=== PATIENT | female | born 1975 | race Caucasian/White ===

== ENCOUNTER 2025-06-18 14:58 | Outpatient (CLI) | payer OTHER, SELFPAY ==
--- NOTE | ~2025-06-18 | XR_ITS ---
AP and lateral views of the sacrum/coccyx CLINICAL HISTORY: Sacroiliitis Findings: Hip joints and SI joints are intact. No degenerative change, sclerosis, erosive change seen . No fracture or dislocation. Soft tissues are unremarkable. IMPRESSION: Unremarkable exam. Reviewed, dictated and finalized at [facility]. IMPRESSION: Unremarkable exam.
--- OUTSIDE RECORDS SUMMARY | 2025-06-18 15:05 | XMS_ITS | Clinical Summary ---
Author Organization [facility] Address [address] [place] [address] Phone Care Team Providers Care Surveillance Investigator Name Role Phone Fredo Mills Primary Care Provider [phone] Allergies No known active allergies Medications ibuprofen (MOTRIN) 200 MG Tablet Take 800 mg by mouth every 8 hours as needed. Active EVENING PRIMROSE OIL PO Take by mouth 2 times daily. Active VITAMIN E PO Take by mouth 2 times daily. Active HYDROcodone-miguel taminophen (NORCO) 5-325 MG Tablet Take 1 Tab by mouth every 6 hours as needed for Moderate or more severe pain. 15 Tab 04/24/2019 Active Active Problems Problem Noted Date Diagnosed Date Carpal tunnel syndrome of right wrist 04/24/2019 Family History Medical History Relation Name Comments No Known Problems Father Hypertension Mother Relation Name Status Comments Father Alive Mother Alive Social History Tobacco Use Types Packs/Day Years Used Date Smoking Tobacco: Every Day Cigarettes Smokeless Tobacco: Never Alcohol Use Standard Drinks/Week Comments Yes 0 (1 standard drink = 0.6 oz pur e alcohol) occasional Comments No Sex and Gender Information Value Date Recorded Sex Assigned at Not on file Legal Sex Female 2:55 AM TURN OUT Gender Identity Not on file Sexual Orientation Not on file Last Filed Vital Signs Vital Sign Reading Time Taken Comments Blood Pressure 125/57 04/24/2019 3:35 PM CDT Pulse 67 04/24/2019 3:35 PM CDT Temperature 36 C (96.8 F) 04/24/2019 3:35 PM CDT Respiratory Rate 16 04/24/2019 3:35 PM CDT Oxygen Saturation 99% 04/24/2019 3:35 PM CDT Inhaled Oxygen Concentration - - Weight 66.7 kg (147 lb) 04/18/2019 9:00 AM CDT Height 157.5 cm (5' 2) 04/18/2019 9:00 AM CDT Body Mass Index 26.89 04/18/2019 9:00 AM CDT Plan of Treatment Health Maintenance Due Date Last Done Comments Hepatitis C Virus (HCV) Screening 1975 TdaP Immunization 1975 Hepatitis B Immunization (1 of 3 - 19+ 3-dose series) 1996 Pap Smear 1998 Cervical Cancer Screening (CCS) 2007 HPV/Cotest 2007 Cologuard 2022 Colonoscopy 2022 Colorectal Cancer Screening 2022 Immunochemical Fecal Occult Blood 2022 SARS-COV-2 Immunization ( season) 2024 08/11/2021, 07/20/2021 Influenza Immunization (#1) 2025 09/20/2018 Respiratory Syncytial Virus (RSV) Immunization (Adult) (1 - 1-dose 75+ series) 2052 Human Papillomavirus (HPV) Immunization Aged Out No longer eligible b ased on patient's age to complete this topic Meningococcal Immunization (ACWY) Aged Out No longer eligible b ased on patient's age to complete this topic Pneumococcal Immunization Combined Aged Out No longer eligible b ased on patient's age to complete this topic Rotavirus Immunization Aged Out No lo nger eligible based on patient's age to complete this topic Insurance [address] [place], [place] [id number] MEDICAID [facility] COVENTRY Care Teams Surveillance Investigator Relationship Specialty Start Date End Date Fredo Mills, PAC [address] [place] [id number] PCP - General Physician Academic Associate 08/29/17
--- OUTSIDE RECORDS SUMMARY | 2025-06-18 15:05 | XMS_ITS | Clinical Summary ---
Author Organization [facility] [address] Address [address] [place] [address] Phone Care Team Providers Care Senior Hris Analyst Name Role Phone Fredo Mills Primary Care Provider [phone] Corey Desir MD Unavailable [phone] Hina Paulino PT Unavailable Unavailable Mandeep Paulino PT Unavailable Unavailable Luis Liu MAGAZINE JOURNALIST Unavailable Un available Allergies No known active allergies Medications multivitamin capsule Take 1 capsule by mouth daily Active biotin-keratin 10,000-100 mcg-mg tablet Take by mouth daily Active etonogestreL (Nexplanon) 68 mg implant Nexplanon 68 MG Subcutaneous Implant QTY: 0 Days: 0 Refills: 0 Written: 10/14/20 Patient Instructions: 0 Active valACYclovir (VALTREX) 1 gram tablet daily [address] (NexIUM) 20 mg capsule Take 1 capsule (20 mg total) by mouth daily before breakfast Active ibuprofen (ADVIL,MOTRIN) 600 mg tablet Take by mouth every 6 (six) hours as needed 3 Active acetaminophen (TYLENOL) 500 mg tablet Take 1 tablet (500 mg total) by mouth every 6 (six) hours as needed for pain 30 tablet 3 Active naproxen (NAPROSYN) 500 mg tablet TAKE 1 TABLET BY MOUTH TWICE A DAY WITH FOOD 60 tablet 2 3 Active amoxicillin 500 mg tablet/capsule TAKE 4 CAPSULES BY MOUTH 1 HOUR BEFORE PROCEDURE 4 tablet/capsu le 2 4 Active Hospital, Clinic, or Other Facility Administered Medication Ordered Dose Route Frequency Start Date End Date Status lidocaine (XYLOCAINE) 20 mg/mL (2 %) injection 3 mLIndications:Admini stration of Local Anesthesia 3 mL One-Time Injection 06/06/2025 5 Ended methylPREDNISolone acetate (DEPO-medrol) injection 80 mgIndications:Primar y osteoarthritis of left knee 80 mg intra-artic One-Time Injection 06/06/2025 5 Ended Active Problems Problem Noted Date Diagnosed Date Sensorineural hearing loss (SNHL) of both ears 0 02/14/2024 Assessment & Plan (02/14/2024 12:13 PM CDT): Hearing test Low salt diet Check blood pressure during these events Agree MRI scan Inflammation in TMJ or neck could contribute these symptoms, consider physical therapy for neck Tinnitus, bilateral 02/14/2024 Assessment & Plan (02/14/2024 12:13 PM CDT): Hearing test Low salt diet Check blood pressure during these events Agree MRI scan Inflammation in TMJ or neck could contribute these symptoms, consider physical therapy for neck Aftercare following right knee joint replacement surgery 10/18/2022 Left-sided chest wall pain 10/10/2022 Polyarthropathy 05/19/2022 Tobacco use disorder 10/27/2021 Primary osteoarthritis of left knee 09/16/2021 Chronic constipation 07/19/2021 Left upper quadrant pain 07/19/2021 Overview (07/19/2021): Added automatically from request for surgery [id number] Calculus of gallbladder 06/20/2021 Assessment & Plan (06/20/2021 3:46 PM CDT): Small krish stone noted on ultrasound recently. I don't think this is contributing to the patient symptoms. Epigastric pain 06/10/2021 Overview (06/10/2021): Added automatically from request for surgery [id number] Assessment & Plan (06/20/2021 3:45 PM CDT): Chronic pain. No worrisome signs. Will schedule EGD. Continue Nexium. Follow up 6 weeks. Orthopedic aftercare 12/30/2020 Left carpal tunnel syndrome 12/07/2020 Overview (12/07/2020): Added automatically from request for surgery [id number] Carpal tunnel syndrome of left wrist 10/08/2020 Carpal tunnel syndrome of right wrist 04/24/2019 Acute streptococcal pharyngitis 04/10/2017 Overview (04/14/2017): Strep throat Other ill-defined and unknow n causes of morbidity and mortality 09/16/2016 Assessment & Plan (06/20/2021 3:48 PM CDT): Discussed weight loss diets. This can contribute to chronic upper abdominal pain. Patient tneed to address this issue aggresseively. Viral infection 10/12/2014 Overview (02/23/2017): Viral disease Pneumonia 10/12/2014 Overview (02/23/2017): Pneumonia Asthma 06/28/2013 Resolved Problems Problem Noted Date Diagnosed Date Resolved Date Primary osteoarthritis of right knee 11/04/2020 10/18/2022 Encounters Date Type Department Care Team Description 06/06/2025 8:30 AM CDT Office Visit [facility] Orth[facility] and [facility] Medicine [address] [facility] [address] [place] [address] Corey Desir MD Primary osteoarthritis of left knee (Primary Dx) 03/27/2025 2:18 PM CDT - 03/27/2025 11:59 PM CDT Hospital Encounter [facility] [address] [place] [address] Abnormal findings on diagnostic imaging of other specified body structures Discharge Disposition: Discharge to home or self care from Last 3 Months Surgical History Surgery Date Site/Laterality Comments SECTION 11/20/2001 - 11/19/2002 section OTHER SURGICAL HISTORY C-sections x2 KNEE SURGERY Right knee surgery OTHER SURGICAL HISTORY Exp. Lap for endometreosis SECTION FOOT SURGERY CARPAL TUNNEL RELEASE Bilateral COLONOSCOPY 09/29/2021 Medical History Medical History Date Comments Hx Other Medical 2004 knee; Lateralit y: right Hx Other Medical 2001 foot surgery pi n in toe; Laterality: right GERD (gastroesophageal reflux disease) Asthma Family History Medical History Relation Name Comments Arthritis Other 1 Family history of arthritis; Lung disease Other 1 Hypertension Other 2 Family history of Hypertension; Relation Name Status Comments Other 1 Other 2 Social History Tobacco Use Types Packs/Day Years Used Date Smoking Tobacco: Every Day Vaping Smokeless Tobacco: Never Tobacco Cessation:Ready to Q uit: Not Asked; Counseling Given: Not Answered Comments:Smoking History Packs/day: 10 Cigarettes Alcohol Use Standard Drinks/Week Comments Yes 0 (1 standard drink = 0.6 oz pur e alcohol) rarely AUDIT-C Answer Date Recorded Q1: How often do you have a drink containing alc ohol? 2-3 times a week 10/03/2022 Q2: How many drinks containi ng alcohol do you have on a typical day when you are drinking? 7 to 9 10/03/2022 Q3: How often do you have si x or more drinks on one occasion? Weekly 10/03/2022 Personal Safety Answer Date Recorded Have you ever been in or are you currently in a harmful physical or emotional relationship or is someone making you feel afraid or unsafe? Denies 06/27/2023 Comments No Sex and Gender Information Value Date Recorded Sex Assigned at Not on file Legal Sex Female 7:52 PM FEDERAL AID COORDINATOR Gender Identity Female 09/11/2024 6:48 PM CDT Sexual Orientation Straight 09/11/2024 6: 48 PM CDT Obstetrics History Last Filed Vital Signs Vital Sign Reading Time Taken Comments Blood Pressure 120/85 02/27/2025 3:01 PM CDT Pulse 96 02/27/2025 3:01 PM CDT Temperature 36.6 C (97.8 F) 02/14/2024 11:40 AM CDT Respiratory Rate 18 06/27/2023 8:00 PM CDT Oxygen Saturation 98% 02/14/2024 11:40 AM CDT Inhaled Oxygen Concentration - - Weight 103.4 kg (228 lb) 06/06/2025 8:19 AM CDT Height 153.7 cm (5' 0.5) 06/06/2025 8:19 AM CDT Body Mass Index 43.8 06/06/2025 8:19 AM CDT Plan of Treatment Health Maintenance Due Date Last Done Comments Breast Cancer Screening-Mammogram 1977 Cervical Cancer Screening 1977 Depression Screening 1977 Hepatitis C Screening 1977 Hepatitis B Screening 1995 Regular Well Visit/Exam 18-64 1995 Pneumococcal vaccine <65 (1 of 2 - PCV) 1996 Covid-19 Vaccine (3 - 2023-2 5 season) 2024 08/11/2021, 07/20/2021 Influenza Vaccine (#1) 2025 , 09/18/2021, 09/07/2020, Additional history exists Colon Cancer Screening-Colonoscopy 09/29/20312020 DTaP/Tdap/Td Vaccine (2 - Td or Tdap) 10/25/2033 10/25/2023 Medical Devices Implanted Type Area Care Management Specialist Device Identifier Shelf Expiration Date Model / Serial / Lot [employer] Cement Bone Simplex Gentamicin High Viscosity 40gm 6195-1-001 - [id number] Implanted:Qty: 2 on 10/03/2022 by Corey Desir MD at [facility] [employer] [id number] 02/18/2024 6195-1-001 / / [id number] [employer] Attune Cemented Posterior Stabilize Knee Right 4 Component [id number] - [id number] Implanted:Qty: 1 on 10/03/2022 by Corey Desir MD at [facility] Right: Knee [employer] [id number] 08/19/2032 [id number] / / [id number] [employer] Attune S+ Cement Fix Bearing Knee 3 Baseplate Tibial [id number] - [id number] Implanted:Qty: 1 on 10/03/2022 by Corey Desir MD at [facility] Right: Knee [employer] [id number] 08/19/2032 [id number] / / [id number] [employer] Attune 8mm Posterior Stabilize Fix Bearing Knee 4 Insert Tibial [id number] - [id number] Implanted:Qty: 1 on 10/03/2022 by Corey Desir MD at [facility] Right: Knee [employer] [id number] 07/20/2027 [id number] / / [id number] Procedures Procedure Name Priority Date/Time Associated Diagnosis Comments VT ARTHROCENTESIS ASPIR&/INJ MAJOR JT/BURSA W/O US Routine 06/06/2025 8:30 AM CDT Primary osteoarthritis of left knee MRI BRAIN WO CONTRAST Schedule Routine, Read Routine (OP Routine) 03/27/2025 3:03 PM CDT Abnormal findings on diagnostic imaging of other specified body structures COLONOSCOPY 09/29/2021 12:20 PM FEDERAL AID COORDINATOR from Last 3 Months or Most Recently Relevant to Health Maintenance Results * VT ARTHROCENTESIS ASPIR&/INJ MAJOR JT/BURSA W/O US (06/06/2025 8:30 AM CDT) Narrative Corey Desir MD - 06/06/2025 8:30 AM CDT Corey Desir MD 06/06/2025 11:46 AM Large Joint (Hip, Knee, Shoulder) Injection: L knee Performed by: Corey Desir MD Authorized by: Corey Desir MD Large Joint Injection/Aspiration: Consent Given by: Patient Site marked: the procedure site was marked Timeout: prior to procedure the correct patient, procedure, and site was verified Verbal consent obtained: Yes Supporting Documentation: Indications: Pain Procedure Details: Location: Knee Site: L knee Needle Size: 22 G Approach: Anterolateral Ultrasound guided: No Fluroscopic guidance: No Medications: 80 mg methylPREDNISolone acetate 80 mg/mL; 3 mL lidocaine 20 mg/mL (2 %) Patient tolerance: Patient tolerated the procedure well with no immediate complications us Corey Desir MD IN CLINIC/BEDSIDE ORDERA BLES Final Result * MRI Brain WO Contrast (03/27/2025 3:03 PM CDT) Anatomical Region Laterality Modality Head and Neck N/A Magnetic Resonan ce 03/27/2025 3:38 PM CDT Narrative 03/27/2025 3:41 PM CDT EXAM DESCRIPTION: MRI BRAIN WO CONTRAST REASON FOR STUDY: Chronic headaches and tingling sensation to top of head for 2 years. No provided focal neurologic deficits. No provided history of trauma or inciting and/or aggravating events. No provided past medical or surgical history. TECHNIQUE: Multiplanar imaging includes non-contrasted T1, T2, FLAIR, and diffusion with ADC map sequences. Additional sequence(s) sensitive to blood products. Images stored on PACS. COMPARISON: MRI brain without contrast 02/15/2024 FINDINGS: CEREBRUM: No acute intra-axial hemorrhage. No edema, mass effect, midline shift, or herniation. WHITE MATTER: Redemonstration of slight widely scattered periventricular-subcortical as well as slight patchy component of pontine T2/FLAIR hyperintense white matter disease, again nonspecific, though can be seen secondary to chronic microvascular ischemia, chronic headache disorders to include migraine headaches, demyelinating disease to include multiple sclerosis, and as sequelae of prior traumatic and/or inflammatory, to include infectious, insults. Correlate with clinical context. POSTERIOR FOSSA: No acute abnormality. As above. DIFFUSION IMAGING: No restricted diffusion to suggest acute/subacute ischemia or infarct. EXTRAAXIAL SPACES: No extra-axial fluid collection. No extra-axial mass. BRAIN VOLUME: Within normal limits for age. PITUITARY: Unchanged. VASCULATURE: No flow disturbance evident. CALVARIUM: Unremarkable. ORBITS: No acute abnormality. Ocular lenses and globes normal in conformation and position. PARANASAL SINUSES AND MASTOIDS: Well-aerated with no fluid levels. No mucosa thickening. OTHER: No other significant finding. IMPRESSION: No acute intracranial process with slight chronic findings as above. THIS IS AN ELECTRONICALLY VERIFIED FINAL REPORT 03/27/2025 3:41 PM - Electronically signed by Kenrick Baum M.D. ILIR: ILIR Report ID: [id number] Reading Location: [id number] Procedure Note Kenrick Baum MD - 03/27/2025 EXAM DESCRIPTION: MRI BRAIN WO CONTRAST REASON FOR STUDY: Chronic headaches and tingling sensation to top of headfor 2 years. No provided focal neurologic deficits. No provided history of trauma or inciting and/or aggravating events. No provided past medical or surgical history. TECHNIQUE: Multiplanar imaging includes non-contrasted T1, T2, FLAIR, and diffusion with ADC map sequences. Additional sequence(s) sensitive [employer] products. Images stored on PACS. COMPARISON: MRI brain without contrast 02/15/2024 FINDINGS: CEREBRUM: No acute intra-axial hemorrhage. No edema, mass effect,midline shift, or herniation. WHITE MATTER: Redemonstration of slight widely scattered periventricular-subcortical as well as slight patchy component of pontine T2/FLAIR hyperintense white matter disease, again nonspecific, though canbe seen secondary to chronic microvascular ischemia, chronic headachedisorders to include migraine headaches, demyelinating disease to include multiple sclerosis, and as sequelae of prior traumatic and/or inflammatory, toinclude infectious, insults. Correlate with clinical context. POSTERIOR FOSSA: No acute abnormality. As above. DIFFUSION IMAGING: No restricted diffusion to suggest acute/subacute ischemia or infarct. EXTRAAXIAL SPACES: No extra-axial fluid collection. No extra-axialmass. BRAIN VOLUME: Within normal limits for age. PITUITARY: Unchanged. VASCULATURE: No flow disturbance evident. CALVARIUM: Unremarkable. ORBITS: No acute abnormality. Ocular lenses and globes normal in conformation and position. PARANASAL SINUSES AND MASTOIDS: Well-aerated with no fluid levels. Nomucosa thickening. OTHER: No other significant finding. IMPRESSION: No acute intracranial process with slight chronic findings as above. THIS IS AN ELECTRONICALLY VERIFIED FINAL REPORT 03/27/2025 3:41 PM - Electronically signed by Kenrick Baum M.D. ILIR: ILIR Report ID: [id number] Reading Location: [id number] Fredo LAMAR IMG MRI PROCEDURES Final Resu lt * COLONOSCOPY (09/29/2021 12:20 PM FEDERAL AID COORDINATOR) Anatomical Region Laterality Modality Other Narrative Procedure Note Javier Wheeler MD - 09/29/2021 12:20 PM CST [facility] Patient Name: Shauna Jones Procedure Date: 09/29/2021 12:20PM Date of : 1975 Admit Type: Outpatient Age: 46 Gender: Female Attending MD: Javier Wheeler M.D. Room: [facility] ENDOSCOPY ROOM 1 Note Status: Finalized Patient Profile: This is a 46 year old female. Patient has chronicpain in the left lower quadrant area along with changein bowel habits and constipation. Upper endoscopy and imaging studies were normal. Procedure: Colonoscopy Indications: This is the patient's first colonoscopy, Abdominal pain in the left upper quadrant, Constipation Referring MD: WILLARD Clement Providers: Javier Wheeler M.D. Impression: - Melanosis coli. - The entire examined colon is normal. - Internal hemorrhoids. - No specimens collected. Recommendation: - Repeat colonoscopy in 10 years for screening purposes. - Continue present medications. - Low-fat low-calorie diet. Exercise regularly.Avoid smoking. Medicines: Monitored Anesthesia Care Complications: No immediate complications. Estimated Blood Loss: Estimated blood loss: none. Procedure: Pre-Anesthesia Assessment: - Prior to the procedure, a History and Physicalwas performed, and patient medications and allergieswere reviewed. The patient's tolerance of previous anesthesia was also reviewed. The risks andbenefits of the procedure and the sedation options and risks were discussed with the patient. All questions were answered, and informed consent was obtained. Prior Anticoagulants: The patient has taken no previous anticoagulant or antiplatelet agents. ASA Grade Assessment: II - A patient with mild systemicdisease. After reviewing the risks and benefits, the patient was deemed in satisfactory condition to undergo the procedure. The benefits, risks and alternatives of theprocedure and sedation were discussed and informed consentwas obtained. All questions were answered. Please referto the signed informed consent document in the medical record. The bowel preparation used was Miralax via split dose instruction. The bowel preparation usedwas bisacodyl tablets via split dose instruction. The scope was passed under direct vision. The Pediatric Colonoscope PCF-H190L [id number] was introducedthrough the anus and advanced to the the cecum, identifiedby appendiceal orifice and ileocecal valve. Thequality of the bowel preparation was good. Bowel prep was administered using a split dose. Findings: The perianal and digital rectal examinations were normal. The cecum appeared normal. The colon (entire examined portion) appeared normal. No polyps and no mass lesions noted. No inflammatory changes noted. Mild diffusechanges of melanosis coli noted Internal hemorrhoids were found during retroflexion. The hemorrhoids were small. Electronically signed by Javier Wheeler M.D. Javier Wheeler M.D. 09/29/2021 1:24:35 PM Number of Addenda: 0 Note Initiated On: 09/29/2021 12:20 PM Procedure Code(s): --- Professional --- 69442, Colonoscopy, flexible; diagnostic, including collection of specimen(s) by brushing or washing, when performed (separateprocedure) Diagnosis Code(s): --- Professional --- K64.8, Other hemorrhoids R10.12, Left upper quadrant pain K59.00, Constipation, unspecified CPT copyright 2019 [employer]. All rights reserved. The codes documented in this report are preliminary and upon mast maker reviewmay be revised to meet current compliance requirements. Recognized by the [employer] for promoting quality in endoscopy Javier Wheeler MD ENDOSCOPY PROCEDURES Final Result from Last 3 Months or Most Recently Relevant to Health Maintenance Insurance [facility] Advance Directives For more information, please contact: [phone] * Full Code (Latest Code Status on File) Date Activated Date Inactivated Comments 10/03/2022 11:35 AM 10/03/2022 7:14 PM * Full Code Date Activated Date Inactivated Comments 09/29/2021 11:46 AM 09/29/2021 6:14 PM * Full Code Date Activated Date Inactivated Comments 09/29/2021 11:46 AM 09/29/2021 11:46 AM * Full Code Date Activated Date Inactivated Comments 07/05/2021 11:36 AM 07/05/2021 5:57 PM Care Teams Senior Hris Analyst Relationship Specialty Start Date End Date Fredo Mills PA [address] [place] [address] PCP - General Family Practice 12/20/18 Corey Desir MD [address] [place] [address] Surgeon Orthopedic Surgery 12/16/20 Hina Paulino, PT Physical Therapist Physical Therapy 10/17/22 Mandeep Paulino, PT Physical Therapist Physical Therapy 10/21/22 Luis Liu, MAGAZINE JOURNALIST Senior Administrative Associate Physical Therapy 11/03/22
--- OUTSIDE RECORDS SUMMARY | 2025-06-18 15:05 | XMS_ITS | Clinical Summary ---
Author Organization [employer] Address [address] [place] [address] Care Team Providers Care Film Spooler Name Role Phone Unavailable Primary Care Provider Unavailabl e Source Comments This disclosure is being made pursuant to the [email or web address] program and maynot contain all information available regarding this patient.[employer] Social History Tobacco Use Types Packs/Day Years Used Date Smoking Tobacco: Never Assessed Comments Unknown Sex and Gender Information Value Date Recorded Sex Assigned at Not on file Legal Sex Female 4:57 PM CDT Gender Identity Not on file Sexual Orientation Not on file Plan of Treatment Health Maintenance Due Date Last Done Comments Breast Cancer Screening-Mammogram 1977 CT Colonography 1975 Colonoscopy 1975 Colorectal Cancer Screening 1975 Fecal DNA Test 1975 HPV 1975 Lab-Cholesterol Screening 1975 Lab-Hepatitis C Screening 1975 Sigmoidoscopy 1975 Annual Wellness Visit 1995 Hepatitis B Vaccine (1 of 3 - 19+ 3-dose series) 1996 Tetanus/Pertussis Vaccine Teen/Adult (1 - Tdap) 1996 FOBT/FIT 1997 Cervical Cancer Screening 04/09/2015 Pap Smear 04/08/2018 04/08/2015 COVID-19 Vaccine ( - 2023-2 5 season) 2024 Influenza Vaccine (#1) 2025 Zoster (Shingles) Vaccine 50 + (1 of 2) 2027 RSV Adult (1 - 1-dose 75+ series) 2052 HIB Vaccine Aged Out No longer eligi ble based on patient's age to complete this topic HPV Vaccine (9-26yo & Shared Decision 27-45yo) Aged Out No longer eligible b ased on patient's age to complete this topic Hepatitis A Vaccine Aged Out No longe r eligible based on patient's age to complete this topic IPV Vaccine Aged Out No longer eligi ble based on patient's age to complete this topic Meningococcal Conjugate Vaccine Aged Out No longer eligible based on patient's age to complete this topic Pneumococcal Vaccines 0-49 yo Aged Out No longer eligible based on patient's age to complete this topic RSV < 20 Months Aged Out No longer el igible based on patient's age to complete this topic Procedures Procedure Name Priority Date/Time Associated Diagnosis Comments LIQUID-BASED PAP SMEAR Routine 04/08/2015 12:00 AM CDT from Last 3 Months or Most Recently Relevant to Health Maintenance Results * Liquid Based Pap Smear (04/08/2015 12:00 AM CDT) 04/08/2015 04/09/2015 Narrative MEI [facility] PATH - 04/14/2015 3:00 PM CDT CASE: [id number] PATIENT: PATRICIA STOCKTON Patient: PATRICIA STOCKTON [place] [facility] [place] 39 Birthdate: 1975 Sex: F Submitted By: JOHN ANN Copies To: FERNANDEZ GARCIA Gynecological Cytology Date Collected: 04/08/2015 LMP:BIRTHCONTROL Specimen Source:Cervical; [id number] Date Received: 04/09/2015 Clinical Information:Last Normal Pap: More than 1 year ago; Last Abnormal Pap: Never Reason for Pap Smear:Screening Pap Smear SPECIMEN ADEQUACY: Satisfactory for evaluation; an endocervical /transformation zone component is present. INTERPRETATION: Negative for intraepithelial lesion or malignancy. Cervicovaginal cellular samples are subject to both false negative and false positive findings. This is well documented in the medical literature. The patient's cervicovaginal cellular sample result should be interpreted in the proper clinical context. Correlation with the patient's clinical history and physical findings is recommended. If there is a visible mucosal lesion, a biopsy is recommended regardless of the cytology results Final Diagnosis performed by Colleen Molina Electronically signed 04/14/2015 1:13:06PM Procedure Note Provider, Not In System - 04/14/2015 CASE: [id number] PATIENT: PATRICIA STOCKTON Patient: PATRICIA STOCKTON [place] Age[place] 39 Birthdate: 1975 Sex: F Submitted By: JOHN ANN Copies To: FERNANDEZ GARCIA Gynecological Cytology Date Collected: 04/08/2015 LMP:BIRTHCONTROL SpecimenSource:Cervical; [id number] Date Received: 04/09/2015 Clinical Information:Last Normal Pap: Morethan 1 year ago; Last Abnormal Pap: Never Reason for Pap Smear:Screening Pap Smear SPECIMEN ADEQUACY: Satisfactory for evaluation; an endocervical /transformation zonecomponent is present. INTERPRETATION: Negative for intraepithelial lesion or malignancy. Cervicovaginal cellular samples are subject to both false negative andfalse positive findings. This is well documented in the medical literature. The patient'scervicovaginal cellular sample result should be interpreted in the proper clinical context. Correlationwith the patient's clinical history and physical findings is recommended. If there is avisible mucosal lesion, a biopsy is recommended regardless of the cytology results Final Diagnosis performed by Colleen Molina Electronically signed 04/14/20151:13:06PM us Not In System Provider PATHOLOGY/CYTOLOGY ORDERA BLES Final Result [facility] [place] from Last 3 Months or Most Recently Relevant to Health Maintenance
--- OUTSIDE RECORDS SUMMARY | 2025-06-18 15:05 | XMS_ITS | Referral Summary ---
Author Organization [facility] [address] Address [address] [place] [address] Phone Care Team Providers Care Material Dispatcher Name Role Phone Fredo Mills Primary Care Provider Corey Desir MD Unavailable [phone] Hina Paulino PT Unavailable Unavailable Mandeep Paulino PT Unavailable Unavailable Luis Liu DIRECTOR OF PUBLIC WORKS Unavailable Un available Encounters Date Type Department Care Team Description 06/06/2025 8:30 AM CDT Office Visit [facility] [address] [place] [address] Corey Desir MD Primary osteoarthritis of left knee (Primary Dx) 03/27/2025 2:18 PM CDT - 03/27/2025 11:59 PM CDT Hospital Encounter [facility] [address] [place] [address] Abnormal findings on diagnostic imaging of other specified body structures Discharge Disposition: Discharge to home or self care from Last 3 Months Allergies No known active allergies Medications multivitamin [...] (07/19/2021): Added automatically from request for surgery [id number] Calculus of gallbladder 06/20/2021 Assessment & Plan (06/20/2021 3:46 PM CDT): Small krish stone noted on ultrasound recently. I don't think this is contributing to the patient symptoms. Epigastric pain 06/10/2021 Overview (06/10/2021): Added automatically from request for surgery [id number] Assessment & Plan (06/20/2021 3:45 PM CDT): Chronic pain. No worrisome signs. Will schedule EGD. Continue Nexium. Follow up 6 weeks. 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 Gender Identity Female 09/11/2024 6:48 PM CDT Sexual Orientation Straight 09/11/2024 6: 48 PM CDT Last Filed Vital Signs Vital Sign Reading [...] 06/06/2025 8:19 AM CDT Plan of Treatment Not on file Medical Devices Implanted Type Area Freight Receiver Device Identifier Shelf Expiration Date Model / Serial / Lot [employer] Cement Bone Simplex Gentamicin High Viscosity 40gm 6195-1-001 - [id number] Implanted:Qty: 2 on 10/03/2022 by Corey Desir MD at [facility] [place] [employer] [id number] 02/18/2024 6195-1-001 / / [id number] [employer] Attune Cemented Posterior Stabilize Knee Right 4 Component [id number] - [id number] Implanted:Qty: 1 on 10/03/2022 by Corey Desir MD at [facility] Right: Knee [employer] [id number] 08/19/2032 [id number] / / [id number] [employer] Attune S+ Cement Fix Bearing Knee 3 Baseplate Tibial [id number] - [id number] Implanted:Qty: 1 on 10/03/2022 by Corey Desir MD at [facility] Right: Knee [employer] [id number] 08/19/2032 [id number] / / [id number] [employer] Attune 8mm Posterior Stabilize Fix Bearing Knee 4 Insert Tibial [id number] - [id number] Implanted:Qty: 1 on 10/03/2022 by Corey Desir MD at [facility] Right: Knee [employer] [id number] 07/20/2027 [id number] / / [id number] Procedures Procedure Name Priority Date/Time Associated Diagnosis Comments OK ARTHROCENTESIS ASPIR&/INJ MAJOR JT/BURSA W/O US Routine 06/06/2025 8:30 AM CDT Primary osteoarthritis of left knee MRI BRAIN WO CONTRAST Schedule Routine, Read Routine (OP Routine) 03/27/2025 3:03 PM CDT Abnormal findings on diagnostic imaging of other specified body structures COLONOSCOPY 09/29/2021 12:20 PM PAINTER SUPERVISOR from Last 3 Months or Most Recently Relevant to Health Maintenance Results * OK ARTHROCENTESIS ASPIR&/INJ MAJOR JT/BURSA W/O US (06/06/2025 [...] Kenrick Baum M.D. ILIR: ILIR Report ID: [id number] Reading Location: [place] [address] Procedure Note Kenrick Baum MD - 03/27/2025 [...] with ADC map sequences. Additional sequence(s) sensitive [employer]. Images stored on PACS. COMPARISON: MRI brain [...] Kenrick Baum M.D. ILIR: ILIR Report ID: [id number] Reading Location: [id number] Fredo LAMAR IMG MRI PROCEDURES Final Resu lt * COLONOSCOPY (09/29/2021 12:20 PM PAINTER SUPERVISOR) Anatomical Region Laterality Modality Other Narrative Procedure Note Javier Wheeler MD - 09/29/2021 12:20 PM CST [place] Patient Name: Shauna Jones Procedure Date: 09/29/2021 12:20PM Date of : 1975 Admit Type: Outpatient Age: 46 Gender: Female Attending MD: Javier Wheeler M.D. [facility] Note Status: Finalized [...] under direct vision. The Pediatric Colonoscope PCF-[id number] was introducedthrough the anus and advanced to [...] 12:20 PM Procedure Code(s): --- Professional --- 46208, Colonoscopy, flexible; diagnostic, including collection of specimen(s) by brushing or washing, when performed (separateprocedure) Diagnosis Code(s): --- Professional --- K64.8, Other hemorrhoids R10.12, Left upper quadrant pain K59.00, Constipation, unspecified CPT copyright 2019 [employer]. All rights reserved. The codes documented in this report are preliminary and upon qa reviewer reviewmay be revised to meet current compliance requirements. Recognized by the [employer] for promoting quality in endoscopy Javier Wheeler MD ENDOSCOPY PROCEDURES Final Result from Last 3 Months or Most Recently Relevant to Health Maintenance Insurance [facility] Advance Directives For more information, please contact: [phone] * Full Code (Latest Code Status on File) Date Activated Date Inactivated Comments 10/03/2022 11:35 AM 10/03/2022 7:14 PM * Full Code Date Activated Date Inactivated Comments 09/29/2021 11:46 AM 09/29/2021 6:14 PM * Full Code Date Activated Date Inactivated Comments 09/29/2021 11:46 AM 09/29/2021 11:46 AM * Full Code Date Activated Date Inactivated Comments 07/05/2021 11:36 AM 07/05/2021 5:57 PM Care Teams Material Dispatcher Relationship Specialty Start Date End Date Fredo Mills PA [address] [place] [address] PCP - General Family Practice 12/20/18 Corey Desir MD [address] [place] [address] Surgeon Orthopedic Surgery 12/16/20 Hina Paulino, PT Physical Therapist Physical Therapy 10/17/22 Mandeep Paulino, PT Physical Therapist Physical Therapy 10/21/22 Luis Liu, DIRECTOR OF PUBLIC WORKS V Belt Coverer Physical Therapy 11/03/22
== END 2025-06-18 14:59 | disposition home or self-care (01) ==
LOC: ANHIMG 15:01
PROVIDERS: PCP Physician Assistant; Visit Provider Nurse Practitioner Adult Health
DX: M46.1 Sacroiliitis, not elsewhere classified (principal)
CPT/HCPCS: 72220

== ENCOUNTER 2025-08-04 09:37 | Day surgery (SDC) | payer OTHER, SELFPAY ==
--- NOTE | ~2025-08-04 | XR_ITS ---
XR fluoroscopy no charge Indication:Bilateral intra-articular SI joint steroid injection TECHNIQUE: Fluoroscopy used during Bilateral intra-articular SI joint steroid injection performed by [Brandon Dupree MD] on 08/04/2025. 52 seconds of fluoroscopy with 10 fluoroscopic images captured. FINDINGS: Correlate with procedure note. IMPRESSION: Fluoroscopy used during Bilateral intra-articular SI joint steroid injection. Reviewed, dictated and finalized at location O.
--- NOTE | 2025-08-04 10:01 | PM.HPGS ---
History of Present Illness History of Present Illness Consent: Risks, benefits, and alternatives have been discussed and questions answered. Patient agrees to proceed with procedure. Chief complaint: Sacroiliac joint arthropathy, sacroiliitis Narrative: Shauna Jones is a 49 year old female with chronic, recalcitrant and disabling bilateral lumbosacral back pain secondary to sacroiliac joint arthropathy, sacroiliitis with failure to respond to aggressive conservative measures including PT, oral and topical analgesics, opioid and nonopioid analgesics, rest, time and activity/behavioral modification over the past 1-2 years who presents for therapeutic intra-articular steroid injection of the bilateral SI joints under fluoroscopic guidance and with contrast control. Review of Systems Review of Systems: Patient denies any new infectious, allergic, cardiopulmonary, neurologic or constitutional symptoms or changes in activity tolerance or exercise capacity including new or progressive SOB/COOK, peripheral edema, productive cough, dysuria, nausea/vomiting, diarrhea, weight change, fevers/chills/night sweats, new or progressive neurologic deficit, cognitive or mood changes since last seen, except as documented in the HPI. All systems reviewed & are unremarkable except as noted in HPI and below PMFSH Past Medical History Medical History (Updated 08/04/25 @ 10:04 by Brandon Dupree MD) Dorsalgia Sacroiliitis delivery delivered GERD (gastroesophageal reflux disease) HTN (hypertension) Arthritis Surgical History Surgical History H/O foot surgery History of right knee joint replacement Family History Family History Father Hypertension Mother Hypertension Heart disease Cerebrovascular accident Asthma Sibling Hypertension Cancer Social History Social History Smoking status: Current every day smoker Tobacco type: cigarettes and e-cigarettes/vaping Additional smoking assessment comments: stopped cigarette use in 2019, now vapes Alcohol intake: current Drinks per week: 6 Substance use: current Substance use type: marijuana Other substance usage details: smoked as sleep aid Last use: 07-24-25 Living arrangements: with family Additional living arrangements comments: and two kids Spiritual care concerns: No Meds Home Medications and Allergies Home Medications ?Medication ?Instructions ?Recorded ?Confirmed ?Type esomeprazole magnesium 20 mg 20 mg PO DAILY 06/18/25 07/25/25 History capsule,delayed release (Nexium) losartan 50 mg tablet 50 mg PO DAILY 06/18/25 07/25/25 History cyclobenzaprine 10 mg tablet 10 mg PO PRN PRN pain 07/25/25 07/25/25 History multivitamin (Daily Multi-Vitamin 1 tablet PO DAILY 07/25/25 07/25/25 History tablet) Allergies Allergy/AdvReac Type Severity Reaction Status Date / Time No Known Allergies Allergy Verified 07/25/25 12:07 Exam Narrative: The patient's physical exam is essentially unchanged from prior examination on 06/18/2025. Specifically, patient demonstrates normal lung capacity, tidal volume and respiratory rate without wheezes, crackles, rales or rubs. Heart rate and rhythm are regular without murmurs, gallops or rubs. No JVD. Pulses 2+ globally without increasing peripheral edema. AAOx3 with no evidence of confusion, intoxication or altered mental state, NC/AT without acute distress or altered consciousness. Speech, cognition, mood, insight and judgment at baseline and within normal limits. Assessment and Plan Assessment and plan (1) Sacroiliitis: Code(s): M46.1 - Sacroiliitis, not elsewhere classified Status: Acute Assessment and Plan: Proceed as planned with therapeutic intra-articular steroid injection of the bilateral SI joints under fluoroscopic guidance and with contrast control. (2) Arthropathy of sacroiliac joint: Code(s): M47.818 - Spondylosis without myelopathy or radiculopathy, sacral and sacrococcygeal region Status: Acute (3) Chronic low back pain: Code(s): M54.50 - Low back pain, unspecified; G89.29 - Other chronic pain Status: Acute
--- NOTE | 2025-08-04 10:05 | W.PM.PROC2 ---
Procedure Note - Detailed Date of Procedure 08/04/25 Pre-op Diagnosis Sacroiliac joint arthropathy, sacroiliitis Post-op Diagnosis Same Procedure Performed Bilateral Sacroiliac Joint Steroid Injection under Fluoroscopic Guidance and with Contrast Control. Surgeon Brandon Dupree MD Supervisor Pullet Farm None Anesthesia Local Description of Procedure INFORMED CONSENT: Risks, benefits and alternatives to the procedure were discussed in detail with the patient who expressed explicit understanding and consent to proceed. Patient was informed verbally and in written form regarding the risks associated with the procedure including the low risk of serious infection, bleeding/bruising, allergic reaction, nerve or organ injury, paralysis, procedural site pain or discomfort, worsening pain and/or mobility, failure to treat and/or disfigurement. The patient expressed explicit understanding and consent to proceed. All materials required for the procedure were available prior to procedure start. Site and side were marked prior to procedure and confirmed in the presence of the patient. PROCEDURE IN DETAIL: The patient was brought to the procedural suite and placed in the prone position. Patient was made comfortable with use of pillows under the head/chest, hips and ankles. Skin overlying the injection site on the affected side(s) was prepared broadly with ChloraPrep applicator and draped in a sterile manner. Aseptic technique was used throughout. The right SI joint was identified in the AP view and contralateral oblique angulation with caudal tilt was utilized to optimize visualization of the inferior and medial joint line representing the posterior portion of the joint. Local anesthesia was established by infiltration with approximately 5 mL of 2% lidocaine via a 1-1/2 inch 27-gauge needle. A 22-gauge 3.5 inch Quincke spinal needle was advanced until the needle entered the inferior third of the joint space approximately 1cm cephalad from its most inferior point. In the AP view, 0.5 mL of Omnipaque 300 contrast medium was injected after negative aspiration for CSF, blood or other bodily fluid, showing appropriate intra-articular spread of contrast without evidence of intravascular, perineural or intrathecal placement. A 1.5 mL solution containing 5 mg of dexamethasone in 0.5% PF bupivacaine was injected after repeat negative aspiration. Appropriate spread of the injectate was confirmed with washout of previous injected contrast. No parasthesias were elicited. Needle was removed completely intact without difficulty. The same exact procedure was repeated for all remaining levels on the contralateral side, left SI joint, modified as necessary to accommodate for the new target location with identical findings/results and no evidence of complication. Images were saved and documented in the patient chart. Patient's skin was cleansed and sterile bandage applied. The patient tolerated the procedure well. The patient was transported to the recovery area in stable condition where they were observed for an appropriate amount of time prior to discharge, without evidence of complication. The patient was instructed to avoid excessive activity for the next 48 hours, including climbing and frequent use of stairs. Showers only for 48 hours. They were instructed not to drive or operate heavy machinery for 24 hours. They are to monitor for severe headaches, fevers, chills, night sweats, erythema/swelling at the site or any other signs of infection, bleeding/bruising, bowel or bladder changes as well as new pain, weakness or numbness in the upper or lower extremity. Should they notice these changes, they are instructed to call our office immediately or report directly to the nearest Emergency Department if no answer or if after posted office hours. COMPLICATIONS: None COMMENTS: None CONTRAST WASTED: 29mL Omnipaque 300. Complications No immediate complications Condition Stable Disposition Same day [facility] Billing Surgery - Charge Forward: Surgery Billing
[2025-08-04 10:10] VITALS: BP 135/73; PULSE 74; RESP 16; TEMP 36.7; O2SAT 98
[2025-08-04 10:19] VITALS: BP 142/77; PULSE 79; RESP 14; O2SAT 98
[2025-08-04] MEDS: LIDOCAINE 1% PF INJ 5 ML VIAL INFILTRATE (10:20)
[2025-08-04] MEDS: BUPivacaine HCL 0.5% 10 ML AMP INFILTRATE (10:21)
[2025-08-04] MEDS: dexAMETHasone SOD PHOS INJ 10 MG/ML 1 ML VIAL IM (10:22)
[2025-08-04 10:23] VITALS: BP 133/77; PULSE 78; RESP 14; O2SAT 98
[2025-08-04 10:28] VITALS: BP 131/77; PULSE 78; RESP 16; O2SAT 100
--- OUTSIDE RECORDS SUMMARY | 2025-08-04 10:29 | XMS_ITS | Clinical Summary ---
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
--- OUTSIDE RECORDS SUMMARY | 2025-08-04 10:29 | XMS_ITS | Clinical Summary ---
Author Organization [facility] [address] Address [address] [place] [address] Phone Care Team Providers Care Copying Machine Mechanic Name Role Phone Fredo Mills Primary Care Provider [phone] Corey Desir MD Unavailable [phone] Hina Paulino PT Unavailable Unavailable Mandeep Paulino PT Unavailable Unavailable Luis Liu MILL HAND Unavailable Un available Allergies No known active [...] PROCEDURE 4 tablet/capsu le 2 4 Active Active Problems Problem Noted Date Diagnosed [...] (07/19/2021): Added automatically from request for surgery [id number] Calculus of gallbladder 06/20/2021 Assessment & Plan (06/20/2021 3:46 PM CDT): Small krish stone noted on ultrasound recently. I don't think this is contributing to the patient symptoms. Epigastric pain 06/10/2021 Overview (06/10/2021): Added automatically from request for surgery [id number] Assessment & Plan (06/20/2021 3:45 PM CDT): Chronic pain. No worrisome signs. Will schedule EGD. Continue Nexium. Follow up 6 weeks. 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 Gender Identity Female 09/11/2024 6:48 PM CDT [...] - PCV) 1996 Covid-19 Vaccine (3 - 2024-2 6 season) 2025 08/11/2021, 07/20/2021 Influenza Vaccine (#1) 2025 2, 09/18/2021, 09/07/2020, Additional history exists Colon Cancer Screening-Colonoscopy 09/29/20312020 DTaP/Tdap/Td Vaccine (2 - Td or Tdap) 10/25/2033 10/25/2023 Medical Devices Implanted Type Area Mechanics Handyman Device Identifier Shelf Expiration Date Model / Serial / Lot [employer] Cement Bone Simplex Gentamicin High Viscosity 40gm 6195-1-001 - [id number] Implanted:Qty: 2 on 10/03/2022 by Corey Desir MD at [facility] [employer] [id number] 02/18/2024 6195-1-001 / / [id number] [employer] Attune Cemented Posterior Stabilize Knee Right 4 Component [id number] - [id number] Implanted:Qty: 1 on 10/03/2022 by Corey Desir MD at [facility] Right: Knee [employer] [id number] 08/19/2032 [id number] / / [id number] [employer] Attune S+ Cement Fix Bearing Knee 3 Baseplate Tibial [id number] - [id number] Implanted:Qty: 1 on 10/03/2022 by Corey Desir MD at [facility] Right: Knee [employer] [id number] 08/19/2032 [id number] / / [id number] [employer] Attune 8mm Posterior Stabilize Fix Bearing Knee 4 Insert Tibial [id number] - [id number] Implanted:Qty: 1 on 10/03/2022 by Corey Desir MD at [facility] Right: Knee [employer] [id number] 07/20/2027 [id number] / / [id number] Procedures Procedure Name Priority Date/Time Associated Diagnosis Comments NC ARTHROCENTESIS ASPIR&/INJ MAJOR JT/BURSA W/O US Routine 06/06/2025 8:30 AM CDT Primary osteoarthritis of left knee COLONOSCOPY 09/29/2021 12:20 PM BOARDINGHOUSE KEEPER from Last 3 Months or Most Recently Relevant to Health Maintenance Results * NC ARTHROCENTESIS ASPIR&/INJ MAJOR JT/BURSA W/O US (06/06/2025 [...] IN CLINIC/BEDSIDE ORDERA BLES Final Result * COLONOSCOPY (09/29/2021 12:20 PM BOARDINGHOUSE KEEPER) Anatomical Region Laterality Modality Other Narrative Procedure Note Javier Wheeler MD - 09/29/2021 12:20 PM CST [facility] Patient Name: Shauna Jones Procedure Date: 09/29/2021 12:20PM Date of : 1975 Admit Type: Outpatient Age: 46 Gender: Female Attending MD: Javier Wheeler M.D. Room: [facility] ENDOSCOPY ROOM 1 Note Status: Finalized [...] under direct vision. The Pediatric Colonoscope PCF-H190L [id number] was introducedthrough the anus and advanced to [...] 12:20 PM Procedure Code(s): --- Professional --- 69464, Colonoscopy, flexible; diagnostic, including collection of specimen(s) by brushing or washing, when performed (separateprocedure) Diagnosis Code(s): --- Professional --- K64.8, Other hemorrhoids R10.12, Left upper quadrant pain K59.00, Constipation, unspecified CPT copyright 2019 [employer]. All rights reserved. The codes documented in this report are preliminary and upon him coder reviewmay be revised to meet current compliance requirements. Recognized by the [place] [employer] for promoting quality in endoscopy Javier Wheeler MD ENDOSCOPY PROCEDURES Final Result from Last 3 Months or Most Recently Relevant to Health Maintenance Insurance [facility] Advance Directives For more information, please contact: [phone] * Full Code (Latest Code Status on File) Date Activated Date Inactivated Comments 10/03/2022 11:35 AM 10/03/2022 7:14 PM * Full Code Date Activated Date Inactivated Comments 09/29/2021 11:46 AM 09/29/2021 6:14 PM * Full Code Date Activated Date Inactivated Comments 09/29/2021 11:46 AM 09/29/2021 11:46 AM * Full Code Date Activated Date Inactivated Comments 07/05/2021 11:36 AM 07/05/2021 5:57 PM Care Teams Copying Machine Mechanic Relationship Specialty Start Date End Date Fredo Mills PA [address] [place] [address] PCP - General Family Practice 12/20/18 Corey Desir MD [address] [place] [address] Surgeon Orthopedic Surgery 12/16/20 Hina Paulino, PT Physical Therapist Physical Therapy 10/17/22 Mandeep Paulino, PT Physical Therapist Physical Therapy 10/21/22 Luis Liu, MILL HAND Foreign Language Teacher Physical Therapy 11/03/22
--- OUTSIDE RECORDS SUMMARY | 2025-08-04 10:29 | XMS_ITS | Clinical Summary ---
Author Organization [facility] Address [address] [place] [address] Care Team Providers Care Director Export Name Role Phone Unavailable Primary Care Provider Unavailabl e Source Comments This disclosure is being made pursuant to the [employer] program and maynot contain all information available regarding this patient.[facility] Social History Tobacco Use Types Packs/Day Years [...] COVID-19 Vaccine ( - 2023-2 5 season) 2025 Influenza Vaccine (#1) 2025 Zoster (Shingles) Vaccine [...] PATH - 04/14/2015 3:00 PM CDT CASE: [id number] PATIENT: PATRICIA STOCKTON Patient: PATRICIA STOCKTON Location: [facility] Age: 39 Birthdate: 1975 Sex: F Submitted [...] Provider, Not In System - 04/14/2015 CASE: [id number] PATIENT: PATRICIA STOCKTON Patient: PATRICIA STOCKTON Location:[facility] Age: 39 Birthdate: 1975 Sex: F Submitted [...] ORDERA BLES Final Result [facility] [place] from Last 3 Months or Most Recently Relevant to Health Maintenance
--- NOTE | 2025-08-22 13:02 | WPDHPUPDATE1 ---
History and Physical Update Update Date/Time: 08/22/25 13:02 History and Physical has been reviewed, including an updated exam of the patient. There are NO changes in the patient's condition. Risks, benefits, and alternatives have been discussed and questions answered. Patient agrees to proceed with procedure.
== END 2025-08-04 10:40 | disposition home or self-care (01) ==
PROVIDERS: PCP Physician Assistant; Visit Provider Anesthesiology Pain Medicine
PROC: (CPT 27096; principal; 2025-08-04 10:30)
DX: M46.1 Sacroiliitis, not elsewhere classified (principal); G89.29 Other chronic pain
CPT/HCPCS: 27096 ×2; 99199; G0260; J1100